=== PATIENT | female | born 1945 | race Caucasian/White ===

== ENCOUNTER 2020-09-13 15:49 | Emergency (ER) | payer MEDICARE, MEDICAID ==
[2020-09-13 16:08] VITALS: BP 168/68; PULSE 75
--- NOTE | 2020-09-13 16:08 | EDM.PDOC ---
ED HPI GENERAL MEDICAL PROBLEM - General Stated Complaint: HIGH BP,LEG SWELLING Time Seen by Provider: 09/13/20 16:00 Source of Information: Reports: Patient History Limitations: Reports: No Limitations - History of Present Illness INITIAL COMMENTS - FREE TEXT/NARRATIVE: 75-year-old female who presents to the emergency department from the walk-in clinic secondary to elevated blood pressure and dizziness. According to the patient getting about 1-1/2 weeks ago she had vomiting and she was followed up in clinic and found to have low potassium and received some IV potassium as an outpatient. She has been sent with of her potassium and had been doing well. Pressures have been low and in fact her blood pressure medication [place] to her potassium levels and to her low blood pressures. Yesterday, she reports that she began to feel fatigued and she has had intermittent episodes of shortness of breath. Today, she also felt "unwell" she reports that she felt nauseated throughout the morning and did not really eat or drink much and also had some feelings of palpitations with dizziness. There have feelings of shortness of breath at times and noted swelling in her legs today. It is something that she states she has never had. The symptoms caused her to present to the walk-in clinic this evening and secondary to her elevated blood pressure and to swelling in her legs. They sent her to the emergency department for evaluation. She tells me that she has no chest pain and she currently does not have any shortness of breath. She does have burning in both of her legs that she rates as an 8/10. She states that they feel tight. She has had some mild nausea but no vomiting. There has been no cough. There have been no fevers or chills. She has been drinking liquids well today. She reports she has been taking her medications as directed. There are no other associated signs or symptoms. There are no other modifying factors. Onset: Other (Yesterday) Duration: Getting Worse (Seemed to be somewhat worse today.) Location: Reports: Lower Extremity, Left, Lower Extremity, Right Quality: Reports: Burning, Other (Tight feeling) Severity: Moderate (to severe) Improves with: Reports: Rest Worsens with: Reports: Movement Context: Reports: Other (As above.) Associated Symptoms: Reports: Loss of Appetite, Shortness of Breath, Other (Otherwise, as above.) Treatments RECORD KEEPER: Reports: Other (see below) (Nothing.) - Related Data Allergies Allergy/AdvReac Type Severity Reaction Status Date / Time aspirin Allergy Rash Verified 09/13/20 16:05 Latex, Natural Rubber Allergy Hives Verified 09/13/20 16:05 Penicillins Allergy Hives Verified 09/13/20 16:05 Sulfa (Sulfonamide Allergy Hives Verified 09/13/20 16:05 Antibiotics) Home Meds: Home Meds ALPRAZolam [Alprazolam Odt] 0.5 mg PO PRN 04/17/13 [History] Acetaminophen [Pain Relief] 500 mg PO 04/17/13 [History] Albuterol Sulfate [Albuterol Sulfate HFA] 108 mcg IH PRN 04/17/13 [History] Calcium Carbonate/Vitamin D3 [Calcium Carb 500 MG] 04/17/13 [History] Lisinopril/Hydrochlorothiazide [Lisinopril-Hctz 10-12.5 mg Tab] 04/17/13 [History] Moxifloxacin HCl [Vigamox] 04/17/13 [History] Multivitamin with Minerals [Multiple Vitamin] 1 tab PO DAILY 04/17/13 [History] PARoxetine HCl [Paroxetine HCl] 20 mg PO 04/17/13 [History] Triamcinolone Acetonide [Triamcinolone Acetonide 0.1% Crm] 04/17/13 [History] Vitamin B Complex [B Complex] 1 each PO 04/17/13 [History] prednisoLONE Acetate [Prednisolone Acetate] 04/17/13 [History] Furosemide [Lasix] 20 mg PO QAM #2 tab 09/13/20 [Rx] Magnesium Oxide 400 mg PO BID 5 Days #10 tablet 09/13/20 [Rx] Past Medical History Cardiovascular History: Reports: High Cholesterol, Hypertension Respiratory History: Reports: COPD Gastrointestinal History: Reports: Inflammatory Bowel Disease (Crohn's disease) Psychiatric History: Reports: Anxiety, Depression Dermatologic History: Reports: Psoriasis - Past Surgical History GI Surgical History: Reports: Appendectomy, Cholecystectomy, Colon, Colonoscopy, EGD Female Surgical History: Reports: Hysterectomy Social & Family History - Tobacco Use Tobacco Use Status *Q: Current Every Day Tobacco User (States that she has been smoking since 20 years of age.) - Alcohol Use Alcohol Use History: No - Living Situation & Occupation Living situation: Reports: (At the age of 55.) Occupation: Retired Social History Comment: Lives by herself in her own apartment ED ROS GENERAL - Review of Systems Review Of Systems: See Below Constitutional: Reports: Malaise, Fatigue HEENT: Reports: No Symptoms Respiratory: Reports: Shortness of Breath (Intermittently) Cardiovascular: Reports: Edema (In both of her feet and ankles.), Lightheadedness, Palpitations GI/Abdominal: Reports: Diarrhea (Intermittent diarrhea), Nausea. Denies: Vomiting : Reports: No Symptoms Musculoskeletal: Reports: Other (Bilateral lower leg, ankles and feet swelling) Skin: Reports: Rash (Chronic rash associated with her psoriasis.) Neurological: Reports: Dizziness Hematologic/Lymphatic: Reports: No Symptoms Immunologic: Reports: Other (She did get her COVID vaccine on 09/12/2020) ED EXAM, GENERAL - Physical Exam Exam: See Below Exam Limited By: No Limitations General Appearance: Alert, WD/WN, No Apparent Distress, Other (She is fluent and appropriate in her conversation. She is nontoxic.) Eye Exam: Bilateral Eye: EOMI, Normal Inspection (Sclerae are anicteric) Ears: Normal External Exam, Hearing Grossly Normal Ear Exam: Bilateral Ear: Auricle Normal Nose: Normal Inspection, Normal Mucosa, No Blood Throat/Mouth: Normal Inspection, Normal Lips, Normal Oropharynx, Normal Voice, No Airway Compromise Head: Atraumatic, Normocephalic Neck: Normal Inspection, Supple, Non-Tender, Full Range of Motion Respiratory/Chest: No Respiratory Distress, No Accessory Muscle Use, Chest Non- Tender, Crackles (At bases bilaterally) Cardiovascular: Normal Peripheral Pulses, Regular Rate, Rhythm, No Murmur Peripheral Pulses: 2+: Radial (L), Radial (R), Dorsalis Pedis (L), Dorsalis Pedis (R) GI/Abdominal: Normal Bowel Sounds, Soft, Tender (Mild diffuse tenderness ("there is always some tenderness in my abdomen")) Back Exam: Normal Inspection. No: CVA Tenderness (R), CVA Tenderness (L) Extremities: Normal Inspection, Normal Range of Motion, Non-Tender, Normal Capillary Refill, Pedal Edema (1+ bilaterally) Neurological: Alert, Oriented, CN II-XII Intact, Normal Cognition, No Motor/Sensory Deficits Psychiatric: Normal Affect Skin Exam: Warm, Dry, Intact, Normal Color, No Rash #1 Interpretation EKG Date: 09/13/20 Time: 15:58 Rhythm: NSR Rate (Beats/Min): 78 [place]: Normal P-Wave: Present QRS: Normal ST-T: Normal QT: Normal Comparison: NA - No Prior EKG EKG Interpretation Comments: Essentially normal EKG. Course - Vital Signs Last Recorded V/S: Last Vital Signs Temp 36.6 C 09/13/20 15:49 Pulse 75 09/13/20 15:49 Resp 17 09/13/20 15:49 BP 168/68 H 09/13/20 15:49 Pulse Ox 98 09/13/20 15:49 Orthostatic Blood Pressure [ 147/71 Sitting] Orthostatic Blood Pressure [ 149/75 Standing] Orthostatic Blood Pressure [ 139/67 Supine] - Orders/Labs/Meds Orders: Active Orders 24 hr Category Date Time Status Chest 1V Frontal [CR] Stat Exams 09/13/20 16:36 Taken EKG 12 Lead [EK] Routine Ther 09/13/20 16:36 Ordered Labs: Laboratory Tests 09/13/20 09/13/20 09/13/20 Range/Units 16:05 16:05 16:05 WBC 8.6 (3.0-10.3) x10-3/uL RBC 3.96 (3.60-5.20) x10(6)uL Hgb 12.2 (11.4-15.5) g/dL Hct 37.0 (34.2-48.2) % MCV 93.5 (76.7-100.5) fL MCH 30.9 (23.9-33.9) pg MCHC 33.0 (31.9-34.8) g/dL RDW 13.6 (12.3-16.5) % Plt Count 268 (151-488) x10(3)uL MPV 9.3 (7.1-12.4) fL Neut % (Auto) 68.8 (30.8-76.2) % Lymph % (Auto) 20.3 (18.4-52.1) % [place] % (Auto) 6.3 (4.4-15.7) % Eos % (Auto) 3.8 (0.6-8.1) % Baso % (Auto) 0.8 (0.2-1.5) % Neut # (Auto) 5.9 (1.5-6.3) x10-3/uL Lymph # (Auto) 1.7 (1.0-4.4) x10-3/uL [place] # (Auto) 0.5 (0.3-1.0) x10-3/uL Eos # (Auto) 0.3 (0.0-0.8) x10-3/uL Baso # (Auto) 0.1 (0.0-0.1) x10-3/uL PT (9.0-11.1) sec INR (1.00-1.24) APTT 22.8 L (24.4-33.2) SECONDS Sodium 144 (135-145) mmol/L Potassium 3.9 (3.5-5.3) mmol/L Chloride 106 (100-110) mmol/L Carbon Dioxide 27 (21-32) mmol/L BUN 11 (7-18) mg/dL Creatinine 0.9 (0.55-1.02) mg/dL Est Cr Clr Drug Dosing TNP Estimated GFR (MDRD) > 60 (>60) BUN/Creatinine Ratio 12.2 (9-20) Glucose 102 (80-116) mg/dL Calcium 8.5 L (8.6-10.2) mg/dL Magnesium 1.7 L (1.8-2.5) mg/dL Total Bilirubin 0.2 (0.1-1.3) mg/dL AST 14 (5-25) IU/L ALT 23 (12-36) U/L Alkaline Phosphatase 91 (56-112) IU/L Troponin I (4.0-60.3) pg/mL NT-Pro-B Natriuret Pep (<=125) pg/mL Total Protein 6.5 (6.0-8.0) g/dL Albumin 2.9 L (3.2-4.6) g/dL Globulin 3.6 g/dL Albumin/Globulin Ratio 0.8 Urine Color (YELLOW) Urine Appearance (CLEAR) Urine pH (5.0-6.5) Ur Specific [place] (1.010-1.025) Urine Protein (NEGATIVE) mg/dL Urine Glucose (UA) (NORMAL) mg/dL Urine Ketones (NEGATIVE) mg/dL Urine Occult Blood (NEGATIVE) Urine Nitrite (NEGATIVE) Urine Bilirubin (NEGATIVE) Urine Urobilinogen (NEGATIVE) mg/dL Ur Leukocyte Esterase (NEGATIVE) Urine RBC (0-5) Urine WBC (0-5) Ur Squamous Epith Cells (NS,R,O) Urine Bacteria (NS) 09/13/20 09/13/20 09/13/20 Range/Units 16:05 16:05 16:15 WBC (3.0-10.3) x10-3/uL RBC (3.60-5.20) x10(6)uL Hgb (11.4-15.5) g/dL Hct (34.2-48.2) % MCV (76.7-100.5) fL MCH (23.9-33.9) pg MCHC (31.9-34.8) g/dL RDW (12.3-16.5) % Plt Count (151-488) x10(3)uL MPV (7.1-12.4) fL Neut % (Auto) (30.8-76.2) % Lymph % (Auto) (18.4-52.1) % [place] % (Auto) (4.4-15.7) % Eos % (Auto) (0.6-8.1) % Baso % (Auto) (0.2-1.5) % Neut # (Auto) (1.5-6.3) x10-3/uL Lymph # (Auto) (1.0-4.4) x10-3/uL [place] # (Auto) (0.3-1.0) x10-3/uL Eos # (Auto) (0.0-0.8) x10-3/uL Baso # (Auto) (0.0-0.1) x10-3/uL PT 10.4 (9.0-11.1) sec INR 0.96 L (1.00-1.24) APTT (24.4-33.2) SECONDS Sodium (135-145) mmol/L Potassium (3.5-5.3) mmol/L Chloride (100-110) mmol/L Carbon Dioxide (21-32) mmol/L BUN (7-18) mg/dL Creatinine (0.55-1.02) mg/dL Est Cr Clr Drug Dosing Estimated GFR (MDRD) (>60) BUN/Creatinine Ratio (9-20) Glucose (80-116) mg/dL Calcium (8.6-10.2) mg/dL Magnesium (1.8-2.5) mg/dL Total Bilirubin (0.1-1.3) mg/dL AST (5-25) IU/L ALT (12-36) U/L Alkaline Phosphatase (56-112) IU/L Troponin I 7.0 (4.0-60.3) pg/mL NT-Pro-B Natriuret Pep 1695 H* (<=125) pg/mL Total Protein (6.0-8.0) g/dL Albumin (3.2-4.6) g/dL Globulin g/dL Albumin/Globulin Ratio Urine Color Yellow (YELLOW) Urine Appearance Clear (CLEAR) Urine pH 6.0 (5.0-6.5) Ur Specific [place] 1.010 (1.010-1.025) Urine Protein Negative (NEGATIVE) mg/dL Urine Glucose (UA) Normal (NORMAL) mg/dL Urine Ketones Negative (NEGATIVE) mg/dL Urine Occult Blood Moderate H (NEGATIVE) Urine Nitrite Negative (NEGATIVE) Urine Bilirubin Negative (NEGATIVE) Urine Urobilinogen Normal (NEGATIVE) mg/dL Ur Leukocyte Esterase Negative (NEGATIVE) Urine RBC 0-5 (0-5) Urine WBC 0-5 (0-5) Ur Squamous Epith Cells Occasional (NS,R,O) Urine Bacteria Rare H (NS) Meds: Medications Discontinued Medications Generic Name Dose Route Start Last Admin Trade Name Freq PRN Reason Stop Dose Admin Furosemide 20 mg 09/13/20 17:51 09/13/20 17:56 Lasix PO 09/13/20 17:52 20 mg ONETIME ONE Administration Magnesium Oxide 800 mg 09/13/20 16:58 09/13/20 17:56 Magnesium Oxide PO 09/13/20 16:59 800 mg ONETIME ONE Administration Ondansetron HCl 4 mg 09/13/20 16:58 09/13/20 17:57 Zofran Odt PO 09/13/20 16:59 4 mg ONETIME ONE Administration - Radiology Interpretation Free Text/Narrative:: Portal chest x-ray shows slight increase in pulmonary vascularity bilaterally. Questionable mild CHF. - Re-Assessments/Exams Free Text/Narrative Re-Assessment/Exam: 09/13/20 17:40: Patient's EKG was reassuringly normal. Her blood tests were all normal except for a mildly low magnesium level and an elevated proBNP. Her chest x-ray showed slight increased pulmonary vascularity. Her O2 saturations are normal. Her blood pressure has improved significantly since she has been here and has stayed in the 130 to 140 systolic range. Her rhythm has remained normal with a normal rate the entire time she has been in the emergency department as well. She does appear to have some mild CHF. We'll need further workup which would include an outpatient echocardiogram but I do not feel that it requires admission to the hospital at this time. I we will place the patient on a small dose of Lasix for the next 3 days. I will also give the patient magnesium replacement over the next 5 days. The patient is to follow-up with her primary provider in the next 2 days. I discussed all of this with the patient and she is in agreement with this plan and would prefer discharge. Precautions and reasons for return to the emergency department were discussed with the patient while she was in the emergency department and were detailed in the patient's discharge instructions. Departure - Departure Time of Disposition: 18:20 Disposition: Home, Self-Care 01 Condition: Good (Improved.) Clinical Impression: Hypertension, uncontrolled, Mild congestive heart failure, Hypomagnesemia - Discharge Information Prescriptions: Furosemide [Lasix] 20 mg PO QAM #2 tab Magnesium Oxide 400 mg PO BID 5 Days #10 tablet Instructions: Heart Failure, Self Care, [id number], Hypomagnesemia, Hypertension, Adult, [id number], Heart Failure, Diagnosis, [id number] Referrals: Jose A Ortiz MD [Primary Care Provider] - Forms: ED Department Discharge Additional Instructions: Your blood tests were for the most part reassuring. Your magnesium level was slightly low. Your potassium level was normal. Your EKG was normal. Your chest x-ray did show some mild increase in fluid. You do not appear to have had a heart attack. The mild increase in fluid in your lungs most probably represents some mild heart failure. I think this is the because your blood pressure is not well controlled. This will need further testing as we discussed on an outpatient basis. Medications as prescribed (Lasix 20 mg, magnesium oxide 400 mg). Continue to take your potassium tablets as directed by your primary doctor. You will need to follow-up with your primary doctor in the next 1-2 days for recheck. Rest. Elevate your legs. Back to the emergency department for chest pain, worsening shortness of breath, worsening weakness or dizziness, vomiting or any other concerning sign or symptom. Sepsis Event Note (ED) - Focused Exam Vital Signs: Vital Signs Temp Pulse Resp BP Pulse Ox 09/13/20 15:49 36.6 C 75 17 168/68 H 98 - My Orders Last 24 Hours: My Active Orders 09/13/20 16:36 Chest 1V Frontal [CR] Stat EKG 12 Lead [EK] Routine - Assessment/Plan Last 24 Hours: My Active Orders 09/13/20 16:36 Chest 1V Frontal [CR] Stat EKG 12 Lead [EK] Routine
[2020-09-13] MEDS ORDERED: Magnesium Oxide 400 MG Tab PO ONE (16:58)
[2020-09-13] MEDS ORDERED: Ondansetron 4 MG Tab.DIS PO ONE (16:58)
[2020-09-13] MEDS ORDERED: Furosemide 20 MG Tab PO ONE (17:51)
--- NOTE | 2020-09-14 10:22 | CR ---
INDICATION: Shortness of breath. CHEST ONE VIEW: An AP upright view of the chest was obtained portable 09/13/20 - no comparison. The heart did not appear enlarged and appeared normal in shape. The aorta is slightly tortuous with calcification in the arch. Overlying EKG leads are noted. A definite active infiltrate or effusion was not identified. However, there is bronchial wall cuffing of moderate degree at the lung bases and extending into the midlung weiss minimally. This may represent active peribronchial disease and/or fibrosis and should be correlated clinically. MTDD
== END 2020-09-13 18:45 | disposition home or self-care (01) ==
LOC: FB.ED 15:49
DX: I11.0 Hypertensive heart disease with heart failure (principal); I50.9 Heart failure, unspecified; E83.42 Hypomagnesemia; J44.9 Chronic obstructive pulmonary disease, unspecified; Z88.8 Allergy status to other drugs, medicaments and biological substances; Z91.040 Latex allergy status; Z88.0 Allergy status to penicillin; Z88.2 Allergy status to sulfonamides; Z79.899 Other long term (current) drug therapy
CPT/HCPCS: 36415; 71045; 80053; 81001; 83735; 83880; 84484; 85025; 85610; 85730; 93005; 99285; A9270; 93010; 99284